=== PATIENT | male | born 1995 | race Caucasian/White ===

== ENCOUNTER 2019-05-30 22:55 | Emergency (ER) | payer SELFPAY ==
[~2019-05-30] VITALS: Ht 170.2 cm; Wt 91.6 kg
[~2019-05-30 22:55] MED LIST: HYDR-3029 PO; NAPR-985 PO; OMEP20CA16 PO; RANI150T35 PO
[2019-05-30 22:59] VITALS: Ht 170.2 cm; Wt 91.6 kg
[2019-05-31 01:26] VITALS: BP 122/83; PULSE 78; RESP 18
--- NOTE | 2019-06-06 01:54 | ERD ---
ER Documentation Chief Complaint Chief Complaint CP on/off X 2 months, worse 1 hr ago, epistaxis HPI This is a 23-year-old male presenting to the emergency department complaints of chest pain which is now resolved. This began approximately 2 months ago but is worsened over the past 2 days. He is also had intermittent episodes. He reports eating a significant amount of chili and spaces and Workman. He states he loves hot she does and spicy candies. Pain is worse after eating and when lying down. Denies any fevers, chills, nausea, vomiting, diarrhea, lower abdominal pain, or other symptoms at this time. ROS All systems reviewed and are negative except as per history of present illness. Medications Home Meds Active Scripts Ranitidine Hcl* (Zantac*) 150 Mg Tablet, 150 MG PO BID PRN for EPIGASTRIC PAIN, #30 TAB Prov:EULALIO VILLALTA PA-C 05/31/19 Omeprazole* (Omeprazole*) 20 Mg Capsule.dr, 20 MG PO BID, #20 Prov:EULALIO VILLALTA PA-C 05/31/19 Allergies Allergies: Coded Allergies: No Known Allergy (Unverified , 05/20/14) PMhx/Soc Medical and Surgical Hx: pt denies Medical Hx, pt denies Surgical Hx Hx Alcohol Use: No Hx Substance Use: No Hx Tobacco Use: No FmHx Family History: No diabetes Physical Exam Physical Exam Const: No acute distress Head: Atraumatic Eyes: Normal Conjunctiva ENT: Normal External Ears, Nose and Mouth. Neck: Full range of motion. No meningismus. Resp: Clear to auscultation bilaterally Cardio: Regular rate and rhythm, no murmurs Abd: Soft, non tender, non distended. Normal bowel sounds. No rebound tenderness or guarding. No McBurney's point tenderness. Skin: No petechiae or rashes Back: No midline or flank tenderness Ext: No cyanosis, or edema Neur: Awake and alert Psych: Normal Mood and Affect Procedures/MDM This is a 23-year-old male presenting to the emergency department with signs and symptoms most consistent with GERD. Much lower suspicion for acute surgical abdomen. I doubt bowel obstruction. I doubt acute appendicitis. I doubt AAA. I doubt esophagitis. I doubt esophageal rupture. Patient is stable and appropriate for discharge and further outpatient management with a prescription for ranitidine and omeprazole. He was advised to return to the department immediately for any new or worsening or concerning symptoms. He understood strict return precautions prior to discharge. EKG: Interpreted by ED physician. Rate/Rhythm: Normal Sinus Rhythm with a rate of 99 bpm. QRS, ST, T-waves: No changes consistent w/ acute ischemia Impression: No evidence of ischemia or arrhythmia Departure Diagnosis: Primary Impression: Epigastric pain Condition: Fair Patient Instructions: Gerd (Adult) Referrals: [facility] YOU HAVE RECEIVED A MEDICAL SCREENING EXAM AND THE RESULTS INDICATE THAT YOU DO NOT HAVE A CONDITION THAT REQUIRES URGENT TREATMENT IN THE EMERGENCY DEPARTMENT. FURTHER EVALUATION AND TREATMENT OF YOUR CONDITION CAN WAIT UNTIL YOU ARE SEEN IN YOUR DOCTORS OFFICE WITHIN THE NEXT 1-2 DAYS. IT IS YOUR RESPONSIBILITY TO MAKE AN APPOINTMENT FOR FOLOW-UP CARE. IF YOU HAVE A PRIMARY DOCTOR --you should call your primary doctor and schedule an appointment IF YOU DO NOT HAVE A PRIMARY DOCTOR YOU CAN CALL OUR PHYSICIAN REFERRAL HOTLINE AT IF YOU CAN NOT AFFORD TO SEE A PHYSICIAN YOU CAN CHOSE FROM THE FOLLOWING [facility] [address] [facility]. [facility] [address] [facility] [facility] [facility] [address] [facility] [facility] [address] [facility]. [facility] [address] [facility] [facility]. [address] Additional Instructions: Call your primary care doctor TOMORROW for an appointment during the next 1-2 days.See the doctor sooner or return here if your condition worsens before your appointment time. EULALIO VILLALTA PA-C Jun 06, 2019 01:54
== END 2019-05-31 01:18 | disposition home or self-care (01) ==
LOC: FTE 22:55
DX: R10.13 Epigastric pain (principal)
CPT/HCPCS: 93005

== ENCOUNTER 2019-06-06 09:56 | Emergency (ER) | payer SELFPAY ==
[~2019-06-06] VITALS: Ht 175.3 cm; Wt 89.4 kg
[2019-06-06 09:59] VITALS: BP 125/77; PULSE 80; RESP 18; Ht 175.3 cm; Wt 89.4 kg
--- NOTE | 2019-06-06 15:44 | ERD ---
ER Documentation Chief Complaint Chief Complaint chest pain x1 week HPI 23-year-old male presenting with chest wall pain x1 week. Patient states that he has occasional shortness of breath and it comes and goes. He has not taken medications for symptoms and denies any coughing. Denies any changes in bowel movements or urination. Denies any change in appetite. Denies other medical problems. NKDA. Surgical history denies. Social history smokes marijuana and cigarettes occasionally. ROS All systems reviewed and are negative except as per history of present illness. Medications Home Meds Active Scripts Hydroxyzine Hcl* (Hydroxyzine Hcl*) 10 Mg Tablet, 10 MG PO Q6H PRN for ANXIETY, #30 TAB Prov:DIAZ GODFREY PA-C 06/06/19 Naproxen* (Naprosyn*) 500 Mg Tablet, 500 MG PO BID PRN for PAIN AND/OR INFLAMMATION, #30 TAB Prov:DIAZ GODFREY PA-C 06/06/19 Ranitidine Hcl* (Zantac*) 150 Mg Tablet, 150 MG PO BID PRN for EPIGASTRIC PAIN, #30 TAB Prov:EULALIO VILLALTA PA-C 05/31/19 Omeprazole* (Omeprazole*) 20 Mg Capsule.dr, 20 MG PO BID, #20 Prov:EULALIO VILLALTA PA-C 05/31/19 Allergies Allergies: Coded Allergies: No Known Allergy (Unverified , 05/20/14) PMhx/Soc Hx Alcohol Use: Yes (occassional) Hx Substance Use: No Hx Tobacco Use: No Smoking Status: Never smoker FmHx Family History: No diabetes, No coronary disease, No other Physical Exam Vitals Vital Signs Date Temp Pulse Resp B/P (MAP) Pulse Ox O2 O2 Flow FiO2 Time Delivery Rate 06/06/19 97.6 80 18 125/77 98 09:59 (93) Physical Exam GENERAL: The patient is well-appearing, well-nourished, in no acute distress HEENT: Atraumatic. Conjunctivae are pink. Pupils equal, round, and reactive to light. There is no scleral icterus. Tympanic membranes clear bilaterally. Oropharynx clear. CHEST: Clear to auscultation bilaterally. There are no rales, wheezes or rhonchi. HEART: Regular rate and rhythm. No murmurs, clicks, rubs or gallops. No S3 or S4. ABDOMEN:Soft, nontender and nondistended. Good bowel sounds. No rebound or guarding. No gross peritonitis. No gross organomegaly or masses. Result Diagram: 06/06/19 1047 06/06/19 1047 Results 24 hrs Laboratory Tests Test 06/06/19 10:47 White Blood Count 4.3 10^3/ul Red Blood Count 5.37 10^6/ul Hemoglobin 15.3 g/dl Hematocrit 46.6 % Mean Corpuscular Volume 86.8 fl Mean Corpuscular Hemoglobin 28.5 pg Mean Corpuscular Hemoglobin Concent 32.8 g/dl Red Cell Distribution Width 13.6 % Platelet Count 228 10^3/UL Mean Platelet Volume 11.2 fl Immature Granulocytes % 0.200 % Neutrophils % 55.6 % Lymphocytes % 34.7 % Monocytes % 8.3 % Eosinophils % 0.5 % Basophils % 0.7 % Nucleated Red Blood Cells % 0.0 /100WBC Immature Granulocytes # 0.010 10^3/ul Neutrophils # 2.4 10^3/ul Lymphocytes # 1.5 10^3/ul Monocytes # 0.4 10^3/ul Eosinophils # 0.0 10^3/ul Basophils # 0.0 10^3/ul Nucleated Red Blood Cells # 0.0 10^3/ul Urine Color YELLOW Urine Clarity CLEAR Urine pH 6.0 Urine Specific [place] 1.020 Urine Ketones TRACE mg/dL Urine Nitrite NEGATIVE mg/dL Urine Bilirubin NEGATIVE mg/dL Urine Urobilinogen NEGATIVE mg/dL Urine Leukocyte Esterase NEGATIVE Taylor/ul Urine Hemoglobin NEGATIVE mg/dL Urine Glucose NEGATIVE mg/dL Urine Total Protein NEGATIVE mg/dl Sodium Level 142 mmol/L Potassium Level 4.3 mmol/L Chloride Level 101 mmol/L Carbon Dioxide Level 30 mmol/L Anion Gap 11 Blood Urea Nitrogen 14 mg/dl Creatinine 1.04 mg/dl Est Glomerular Filtrat Rate mL/min > 60 mL/min Glucose Level 100 mg/dl Calcium Level 10.3 mg/dl Total Bilirubin 0.7 mg/dl Direct Bilirubin 0.00 mg/dl Indirect Bilirubin 0.7 mg/dl Aspartate Amino Transf (AST/SGOT) 22 IU/L Alanine Aminotransferase (ALT/SGPT) 31 IU/L Alkaline Phosphatase 78 IU/L Troponin I < 0.012 ng/ml Total Protein 8.9 g/dl Albumin 5.4 g/dl Globulin 3.50 g/dl Albumin/Globulin Ratio 1.54 Lipase 31 U/L Procedures/MDM DIAGNOSTIC IMAGING REPORT Patient: GILBERT MANRIQUE : 1995 Age: 23 Sex: M MR #: [id number] DOS: 06/06/19 1041 Ordering MD: HESHAM GODFREY PA-C Location: [facility] Room/Bed: PROCEDURE: XR Chest PA CLINICAL INDICATION: Abdominal pain TECHNIQUE: An PA radiograph of the chest was submitted. COMPARISON: None. FINDINGS: Cardiovascular: The cardiovascular silhouette appears unremarkable. Lung Sherman: The lung sherman appear clear with no nodule, alveolar infiltrate, or interstitial prominence evident. Pleural Spaces: There is no pneumothorax or pleural fluid accumulation evident. Osseous Structures: The osseous structures appear intact. Soft Tissues: The soft tissues appear unremarkable. IMPRESSION: Unremarkable PA chest. EKG: Rate/Rhythm: 74 bpm. Normal Sinus Rhythm QRS, ST, T-waves: No changes consistent w/ acute ischemia Impression: No evidence of ischemia or arrhythmia MDM: 23-year-old male presenting with chest wall pain. Blood work is within normal limits. Chest x-ray is within normal limits. EKG is within normal limits. Patient is discharged with supportive medications. I have considered endocarditis and myocarditis by low suspicion. I have low suspicion for endocarditis or pulmonary emergency. Patient is discharged with strict ER precautions and told to follow-up with primary care within 1 to 2 days for close evaluation. Patient is told if symptoms change or worsen to return immediately to the ER. All questions answered at discharge Departure Diagnosis: Primary Impression: Chest pain Condition: Stable Patient Instructions: Chest Pain, Uncertain Cause Referrals: [facility] YOU HAVE RECEIVED A MEDICAL SCREENING EXAM AND THE RESULTS INDICATE THAT YOU DO NOT HAVE A CONDITION THAT REQUIRES URGENT TREATMENT IN THE EMERGENCY DEPARTMENT. FURTHER EVALUATION AND TREATMENT OF YOUR CONDITION CAN WAIT UNTIL YOU ARE SEEN IN YOUR DOCTORS OFFICE WITHIN THE NEXT 1-2 DAYS. IT IS YOUR RESPONSIBILITY TO MAKE AN APPOINTMENT FOR FOLOW-UP CARE. IF YOU HAVE A PRIMARY DOCTOR --you should call your primary doctor and schedule an appointment IF YOU DO NOT HAVE A PRIMARY DOCTOR YOU CAN CALL OUR PHYSICIAN REFERRAL HOTLINE AT IF YOU CAN NOT AFFORD TO SEE A PHYSICIAN YOU CAN CHOSE FROM THE FOLLOWING [facility] [address] [facility] [address] [facility] [address] [facility] [address] [facility]. [facility] [address] [facility]. [facility] [address] Additional Instructions: FOLLOW UP WITH YOUR PRIMARY CARE PHYSICIAN TOMORROW.Return to this facility if you are not improving as expected. DIAZ GODFREY PA-C Jun 06, 2019 15:44
== END 2019-06-06 11:53 | disposition home or self-care (01) ==
LOC: FTE 09:56
DX: R07.89 Other chest pain (principal)
CPT/HCPCS: 36415; 71045; 80053; 81003; 83690; 84484; 85025; 93005

== ENCOUNTER 2019-07-29 08:46 | Emergency (ER) | payer BC ==
[~2019-07-29] VITALS: Ht 175.3 cm; Wt 82.8 kg
[~2019-07-29 08:46] MED LIST changes: +IBUP-1542 PO; -OMEP20CA16 PO; +OMEP20CA17 PO; +RANI-535 PO; -RANI150T35 PO; +TRAM50TA2 PO
[2019-07-29 08:56] VITALS: BP 146/69; PULSE 79; RESP 18; Ht 175.3 cm; Wt 82.8 kg
== END 2019-07-29 10:14 | disposition home or self-care (01) ==
LOC: FTE 08:46
DX: F41.9 Anxiety disorder, unspecified (principal); R07.9 Chest pain, unspecified
CPT/HCPCS: 93005